=== PATIENT | female | born 1960 | race African-American/Black ===

== ENCOUNTER 2024-05-20 09:56 | Outpatient (CLI) | payer OTHER, SELFPAY ==
--- NOTE | ~2024-05-20 | CT_ITS ---
EXAMINATION: CT lung screening DATE: 05/20/2024 10:28 INDICATION: HX OF NICOTINE DEPENDENCE TECHNIQUE: Computed tomography (CT) of the chest was performed without intravenous contrast. Addition al 3D reconstructions utilizing coronal maximum intensity projection (MIP) were performed. Automated exposure control and iterative reconstruction technique were employed. The dose-length product was 39 3.60 mGy-cm. COMPARISON: None FINDINGS: There are few scattered <3 mm nodules in both lungs. Minimal scattered linear atelectasis. No pneumon ia, pulmonary edema or pleural effusion. Borderline heart size. Atherosclerotic coronary artery calci fications and change of prior median sternotomy and coronary artery bypass grafting. Mitral valve rep air. No pericardial effusion. Thoracic aorta is normal in caliber. No pathologically enlarged thoraci c lymphadenopathy. Severe thoracic spondylosis. IMPRESSION: 1. Lung-RADS category 2: Benign appearance or behavior. Continue annual screening with noncontrast lo w-dose chest CT in 12 months. Reviewed, dictated and finalized at location B. IMPRESSION: 1. Lung-RADS category 2: Benign appearance or behavior. Continue annual screeni ng with noncontrast low-dose chest CT in 12 months.
== END 2024-05-20 09:57 | disposition home or self-care (01) ==
PROVIDERS: Visit Provider Internal Medicine Pulmonary Disease
DX: F17.218 Nicotine dependence, cigarettes, with other nicotine-induced disorders (principal)
CPT/HCPCS: 71271